=== PATIENT | male | born 1950 | race Caucasian/White ===

== ENCOUNTER 2019-01-23 15:54 | Observation (INO) | payer MEDICARE ==
[2019-01-23 16:26] LABS: #Eosinphils 0.1 thou/uL (0.0-0.7); #Lymphocytes 1.7 thou/uL (1.20-3.40); #Monocytes 0.6 thou/uL (0.11-0.59); #Neutrophils 9.5 thou/uL (1.40-6.50); %Basophils 0.3 % (0.0-1.0); %Lymphocytes 13.9 % (21.0-51.0); %Monocytes 5.1 % (0.0-10.0); %Neutrophils 79.6 % (42.0-75.0); Hemoglobin 14.8 g/dL (14.0-18.0); Mean Corpuscular HGB CONC 33.3 g/dL (32.0-36.0); Mean Corpuscular Hemoglobin 28.9 pg (27.0-31.0); Mean Corpuscular Volume 86.6 fL (78.0-98.0); Platelet Count 347 thou/uL (130-400); RBC Distribution Width 12.7 % (11.5-14.5); Red Blood Cell (RBC) Count 5.12 mill/uL (4.70-6.10)
[2019-01-23] MEDS ORDERED: Ondansetron PF 4 MG/2 ML Vial ONE (16:29)
[2019-01-23] MEDS ORDERED: Aspirin Chewable 81 MG TAB ONE (16:29)
[2019-01-23] MEDS ORDERED: Fentanyl 100 MCG/2 ML VIAL ONE (16:29)
[2019-01-23 16:51] LABS: ALT (SGPT) 22 U/L (8-55); AST (SGOT) 21 U/L (5-34); Albumin 4.5 g/dL (3.4-4.8); Alkaline Phosphatase 41 U/L (40-110); Anion Gap 14 mmol/L (10-20); BUN (Urea Nitrogen) 17 mg/dL (8.4-25.7); Bilirubin, Total 0.4 mg/dL (0.2-1.2); CK (CPK) 253 U/L (30-200); Calc. Creatinine Clearance 0 mL/min (70-130); Calcium 9.6 mg/dL (7.8-10.44); Carbon Dioxide 22 mmol/L (23-31); Chloride 100 mmol/L (98-107); Estimated GFR-MDRD 56; Globulin 3.4 g/dL (2.4-3.5); Glucose 182 mg/dL (80-115); Lipase 22 U/L (8-78); Potassium 4.1 mmol/L (3.5-5.1); Protein, Total 7.9 g/dL (5.8-8.1); Sodium 132 mmol/L (136-145)
[2019-01-23] MEDS ORDERED: Iopamidol-370 76% 500 ML 1 ML ONE (16:54)
[2019-01-23 17:07] LABS: CKMB 3.8 ng/mL (0-6.6)
[2019-01-23] MEDS ORDERED: Acetaminophen 650 MG Suppository PR PRN (17:20)
[2019-01-23] MEDS ORDERED: Sodium Chloride 0.9% 1,000 ML IV SCH (17:30)
[2019-01-23] MEDS ORDERED: Dextrose 5% in Water 1,000 ML IV PRN (17:31)
[2019-01-23] MEDS ORDERED: HumaLOG 300 UNITS/3 ML VIAL SC PRN ×2 (17:31)
[2019-01-23] MEDS ORDERED: Dextrose 50% Abboject 50 ML SYRINGE SLOW IVP PRN (17:31)
[2019-01-23] MEDS ORDERED: cloNIDine 0.1 MG TAB PO PRN (17:36)
[2019-01-23] MEDS ORDERED: hydrALAZINE 20 MG/ML VIAL SLOW IVP PRN (17:37)
--- NOTE | 2019-01-23 17:37 | CT ---
EXAM: CT angiogram chest and abdomen with IV contrast and 3-D reconstructions PROVIDED CLINICAL HISTORY: Back pain in a patient with hypertension. Patient states feels as if he is having a heart attack. COMPARISON: None FINDINGS: The thoracic and abdominal aorta are normal in caliber without evidence of an aortic dissection. Mild scattered atherosclerotic calcifications and plaque are seen in the thoracic and abdominal aorta. Vascular calcifications are seen in the coronary arteries. There is suboptimal opacification of the pulmonary arteries to evaluate for pulmonary embolus. The celiac, superior mesenteric, and inferior mesenteric arteries are patent. There 2 patent right re nal arteries. A single patent left renal artery is present. Vascular calcifications are seen in the visualized proximal common iliac arteries which are otherwise patent. A heterogeneous nodule is seen in the left lobe of the thyroid gland measuring 1.7 cm. Subcentimeter hypodense nodule is seen in the right lobe of thyroid gland There is no evidence of mediastinal lymphadenopathy. Prominent calcified scattered pleural-based plaques are again seen within the lungs bilaterally. Thes e findings are nonspecific but can be seen with prior asbestos exposure. No pulmonary nodule, mass, or pleural effusion is seen in the lungs bilaterally. There is evidence of prior granulomatous disease with calcified bilateral hilar lymph nodes as well a s scattered calcified granulomata within the lungs and calcified granulomata in the liver and spleen. A 9 mm hypodense cystic lesion is seen in the tail of the pancreas. The bilateral adrenal glands and kidneys demonstrate a normal CT appearance. A fat-containing ventral abdominal wall hernia is seen but incompletely imaged on this exam. A small hiatal hernia is seen. Degenerative changes are seen throughout the spine. IMPRESSION: 1. Pancreatic cystic lesion measuring less than 1 cm in the tail of the pancreas. Given the age of th e patient and size of the lesion, ACR white paper guidelines recommend follow-up evaluation in 2 years. Imaging follow-up is recommended with contrast-enhanced MRI versus pancreas protocol CT. 2. Heterogeneous nodule left lobe of the thyroid gland. Nonemergent thyroid ultrasound is recommended . . 3. Mild atherosclerotic vascular calcifications within the abdominal aorta and iliac arteries, but th e thoracic and abdominal aorta are normal in caliber without evidence of an aortic dissection. 4. Calcified pleural-based plaques within the lungs bilaterally which is overall nonspecific. This ca n be seen with prior asbestos exposure. No parenchymal lung changes are identified. 5. Small hiatal hernia. 6. Fat-containing ventral abdominal wall hernia. Reported By: Franc Holcombally Signed: 01/23/2019 5:34 PM
[2019-01-23 19:06] LABS: Bilirubin Negative (Negative); Blood, Urine Negative (Negative); Clarity Clear (Clear); Glucose, Urine (Dipstick) Greater than 1000 mg/dL (Negative); Leukocyte Negative Leu/uL (Negative); Nitrite Negative (Negative); Protein, Urine (Dipstick) 20 mg/dL (Neg-Trace); Urobilinogen Normal mg/dL (Less than 2)
[2019-01-23 20:00] LABS: CKMB 3.1 ng/mL (0-6.6)
[2019-01-23] MEDS ORDERED: Enoxaparin Sodium 100 MG/ML SYRINGE ONE (20:46)
[2019-01-23] MEDS ORDERED: Nitroglycerin 2% Ointment 1 INCH/1 GM Packet ONE (20:46)
[2019-01-23] MEDS ORDERED: Famotidine/PF 20 mg/2ml Vial SLOW IVP SCH (21:00)
[2019-01-23 22:38] LABS: Troponin I 0.047 ng/mL (< 0.028)
[2019-01-23 23:01] VITALS: BMI 38.2
[2019-01-24] MEDS: Acetaminophen 325 MG TAB PO PRN ×2 (00:06→12:39)
[2019-01-24] MEDS ORDERED: Ketorolac Tromethamine 30 MG/ML VIAL IVP PRN (02:34)
[2019-01-24 04:37] LABS: #Basophils 0.1 thou/uL (0.0-0.2); #Eosinphils 0.3 thou/uL (0.0-0.7); #Lymphocytes 2.1 thou/uL (1.20-3.40); #Monocytes 0.6 thou/uL (0.11-0.59); #Neutrophils 7.3 thou/uL (1.40-6.50); %Basophils 0.5 % (0.0-1.0); %Eosinophils 2.5 % (0.0-10.0); %Lymphocytes 20.8 % (21.0-51.0); %Monocytes 5.8 % (0.0-10.0); %Neutrophils 70.5 % (42.0-75.0); Hemoglobin 13.1 g/dL (14.0-18.0); Mean Corpuscular HGB CONC 32.9 g/dL (32.0-36.0); Mean Corpuscular Hemoglobin 28.2 pg (27.0-31.0); Mean Corpuscular Volume 85.7 fL (78.0-98.0); Mean Platelet Volume 7.2 fL (7.4-10.4); Platelet Count 305 thou/uL (130-400); RBC Distribution Width 12.6 % (11.5-14.5); Red Blood Cell (RBC) Count 4.64 mill/uL (4.70-6.10); White Blood Cell (WBC) Count 10.3 thou/uL (4.8-10.8)
[2019-01-24 04:58] LABS: Anion Gap 11 mmol/L (10-20); BUN (Urea Nitrogen) 13 mg/dL (8.4-25.7); Calc. Creatinine Clearance 97 mL/min (70-130); Calcium 8.9 mg/dL (7.8-10.44); Carbon Dioxide 22 mmol/L (23-31); Cardiac Risk 5.1 (Less than 4.5); Chloride 105 mmol/L (98-107); Cholesterol 142 mg/dl (< 200 Desired); Estimated GFR-MDRD 66; Glucose 149 mg/dL (80-115); HDL Cholesterol 28 mg/dL (>60 Neg Risk); LDL Cholesterol, Calculated 73 mg/dL; Sodium 134 mmol/L (136-145); Triglycerides 207 mg/dL (Less than 150)
--- NOTE | 2019-01-24 07:34 | HP ---
PRIMARY CARE PHYSICIAN: [place]. CHIEF COMPLAINT: Left sided back pain. HISTORY OF PRESENT ILLNESS: Mr. Chaparro is a pleasant 68-year-old man with a history of hypertension, hyperlipidemia, diabetes mellitus, and coronary artery disease, who has had an DC x2 in the past with 2 stents placed 4 to 5 years ago. The patient states he developed left sided back pain just below the shoulder blade approximately 2 weeks ago, which he states was mild and barely noticeable. The pain was suddenly worse when he woke up this morning. He was traveling with his and was staying at a local park with plans to return to their home in [place] today. Given the significant worsening in his pain, he opted to come in to undergo evaluation. The patient denies having any recent trauma or falls. Denies having any chest pain, palpitations, or shortness of breath. States the pain was made worse with movement before he came in; however, states that the pain has completely resolved after he was given nitroglycerin on arrival to the emergency department. In the ED, he underwent an EKG that showed normal sinus rhythm with a heart rate of 77. There were no ST changes or T-wave abnormalities. He underwent laboratory studies, which showed white cell count of 12, hemoglobin of 14.8, hematocrit 44.3, platelets 347, neutrophils 79.6. Sodium 132, potassium 4.1, chloride 100, carbon dioxide 22, anion gap 14, BUN 17, creatinine 1.28, GFR 56, glucose 182, calcium 9.6. LFTs unremarkable. Alkaline phosphatase 41. CK 253, CK-MB 3.8. Initial troponin was 0.029. BNP 21.2. Albumin 4.5, lipase 22. He was treated with Lovenox and given 1 inch of Nitro-Bid as well as 324 mg of aspirin. He received fentanyl injection 100 mcg and has been on 1 L of IV fluids as well as Zofran. CT dissection has been ordered and report is pending. PAST MEDICAL HISTORY: 1. Hypertension. 2. Hyperlipidemia. 3. Type 2 diabetes mellitus, on insulin. 4. DC x2. PAST SURGICAL HISTORY: Cardiac stents x2. SOCIAL HISTORY: The patient is fully independent and lives with his . Denies any alcohol consumption or illicit drug use. He does smoke cigars. FAMILY HISTORY: Noncontributory. ALLERGIES: NO KNOWN DRUG ALLERGIES. CURRENT MEDICATIONS: The patient does not have a list of his medications at this present time. PHYSICAL EXAMINATION: GENERAL: The patient appears well developed, well nourished, and is in no acute distress. VITAL SIGNS: Temperature 98, pulse 77, blood pressure 188/86, respirations 19, O2 saturation 98% on room air. HEENT: Normocephalic and atraumatic. Pupils are equal, round, and reactive to light. Sclerae without icterus. Oropharynx is clear. NECK: Supple. LUNGS: Clear to auscultation bilaterally without any wheezes, rales, or rhonchi. CARDIAC: Regular rate and rhythm. ABDOMEN: Obese, soft, nontender, nondistended. Ventral abdominal hernia present, reducible and nontender. EXTREMITIES: No lower leg swelling or edema. No calf tenderness. NEUROLOGIC: Alert and oriented x3. No neuro deficits. MUSCULOSKELETAL: He does not have any reproducible pain on palpation of the thoracolumbar spine nor over the area in which he was experiencing discomfort previously, that being directly below the left scapula. SKIN: Normal, warm and dry. INVESTIGATIONS: As mentioned above in HPI. IMPRESSION AND PLAN: Mr. Chaparro is a 68-year-old gentleman with multiple comorbidities, who has had a myocardial infarction in the past requiring stents x2, who has been referred for the following. 1. Acute coronary syndrome rule out. We will continue to trend troponins. Initial troponin was indeterminate. The patient is currently being taken for a CT dissection. He is without any pain at present. 2. We will tentatively schedule stress test for the morning. Per patient, he sees Dr. Lopez at [facility] in [place] and last had an echo as well as a stress test approximately only 1 year ago. Day Team to decide if Cardiology input needed. 3. Hypertension. BP currently elevated. The patient states his blood pressure is not usually this high and he did take his medications as usual this morning. We will need to verify his home medications. We will reconcile once done. In the meantime, we will cover with p.r.n. antihypertensives. 4. Diabetes mellitus, on insulin. Again, we will need to verify home medications and reconciled. Monitor blood glucose. Initiate insulin sliding scale. 5. Gastrointestinal prophylaxis. Famotidine 20 mg IV b.i.d. 6. Deep venous thrombosis prophylaxis. Mechanical SCDs. 7. Code status full. His surrogate decision maker is Kai Casillas, his , her phone #[phone]. The patient's case was discussed with Dr. Hamilton, who agrees with the plan of care as described above. Job ID: [id number]
[2019-01-24 08:29] LABS: Troponin I 0.041 ng/mL (< 0.028)
[2019-01-24] MEDS ORDERED: Famotidine 20 MG TAB PO SCH (09:00)
--- NOTE | 2019-01-24 10:45 | CON ---
DATE OF CONSULTATION: 01/24/2019 INDICATION FOR CONSULTATION: A 68-year-old gentleman with a history of coronary artery disease, who has undergone angioplasty and stent placed in the past, who presented after having significantly elevated blood pressure and left back pain. He has had stent placements in the past. He says he had myocardial infarctions also. This is about 4 or 5 years ago done I believe in [place] or either in some other facility, but was not done here in [facility]. He lifted some heavy objects about 3 days ago and then noticed yesterday he started developing back pain and he also took his blood pressure, which was significantly elevated. He presented to the emergency room. He says at time he took his blood pressure was over 200/120 or 140. He presented to the emergency room and then EKG showed no significant changes. He did have some indeterminate cardiac enzymes, which certainly could be due to the elevation of the blood pressure, but his cardiac enzymes were still indeterminate, but most likely can represent a type 2 [id number] elevation myocardial infarction due to demand ischemia. Otherwise, at this time, his back still has some discomfort, especially when he moves from one side to the other, but otherwise he denies any chest pain. He has no shortness of breath and has been otherwise stable. He was given some nitroglycerin in the emergency room as well as aspirin and Lovenox and also was given fentanyl and I believe some Zofran and it seems to be much better now. PAST MEDICAL HISTORY: Please refer to the notes dictated by my nurse practitioner, but briefly, past medical history shows a history of hypertension, hyperlipidemia, myocardial infarction, stent placements, diabetes. He is on insulin. FAMILY HISTORY: Noncontributory. SOCIAL HISTORY: He is . He is independent. He has no history of alcohol or tobacco abuse. No illicit drug use. REVIEW OF SYSTEMS: Please refer to the notes already dictated. He has no significant complaints at this time. Overall, review of systems is unremarkable except as noted in the history of present illness. ALLERGIES: NONE. MEDICATIONS: At this time, his home medications include metoprolol 25 mg a day, Lantus insulin 42 units nightly. He also takes FlexPen 12-14 units three times a day, fenofibrate 160 mg a day, lisinopril 5 mg a day, Victoza injection at noon 1.8 units, metformin 1000 mg b.i.d., and atorvastatin 10 mg nightly. PHYSICAL EXAMINATION: GENERAL: Reveals a well-developed, well-nourished gentleman, who is in no acute distress at this time. VITAL SIGNS: Blood pressure is actually 104/55, shortly after midnight was 128/72. When he arrived to the emergency room was 145/77 at least 0900 hours last night when he presented to the floor. He is afebrile. His respiratory rate is 12 to 14. Heart rate is 60s to 80s and shows a sinus rhythm. HEENT: Shows head to be normocephalic and atraumatic. NECK: Carotid pulses are present without any bruits. CHEST: His chest was clear to auscultation without rales, rhonchi, or wheezing. CARDIOVASCULAR: Reveals a regular rate and rhythm with normal S1, S2. I cannot hear an S3 nor an S4. There were no significant murmurs, heaves, thrills, bruits, or rubs. ABDOMEN: Shows morbid obesity. Positive bowel sounds are present. EXTREMITIES: Showed no clubbing, cyanosis, or edema. Pedal pulses are present. NEUROLOGIC: The patient appears to be intact. LABORATORY DATA: Shows a troponin I of 0.037 increased up to 0.047, is now decreased back down to 0.041. His cholesterol level was 142 with an LDL level controlled at 73 and HDL was only 28, triglycerides were 207. Blood sugar was 141 and hemoglobin was 13.1, WBC of 10.3. EKG shows a normal sinus rhythm with no acute changes. No evidence of previous myocardial infarction. No evidence of ischemia. IMPRESSION: 1. A 68-year-old gentleman with a history of coronary artery disease, who presented with back pain and significant hypertension and slight elevation of cardiac enzymes, most likely due to the hypertensive episode. This is all now resolved. The patient is stable without any other further symptoms. As long as the blood pressure remains stable, the patient could be discharged to home. He can follow up with his primary airworthiness inspector. 2. Hypertension. This is under good control at this time. We will continue his present medications. Most likely, the blood pressure spiked due to the pain he was having with his back. 3. Diabetes. This will be dealt with by the primary care service. 4. Dyslipidemia. He is also taking medications. We will continue his present medications. At this time, I believe the patient is stable and could be discharged to home. Job ID: [id number]
[2019-01-24 12:43] VITALS: BP 119/57; TEMP 97.3
--- NOTE | 2019-01-24 15:34 | CON ---
DATE OF CONSULTATION: The patient's primary care doctor is Dr. Lopez in [place], [place]. The patient's primary pilling machine operator is going to be here in the [facility], going to be Dr. Bessie Patiño. The patient's primary care doctor here in the hospital is Darin Barros. REASON FOR CARDIOLOGY CONSULTATION: Left subscapular pain, history of myocardial infarction x2, stent placement, and diabetes. HISTORY OF PRESENT ILLNESS: Mr. Chaparro is a 68-year-old male with a significant history of coronary artery disease with stent placement times twice in 2010 and 2013, in the same place; hypertension; hyperlipidemia; and insulin-dependent diabetes. The patient is from [place]. He is travelling around in the [facility] with his . While he was driving around [facility], he started having the left back pain. Also, when he checked the blood pressure around 2 o'clock yesterday, his systolic blood pressure was more than 180, where his diastolic 140. He took his blood pressure twice, which was similar to the first one. Due to the high blood pressure and the back pain, the patient decided to present to the emergency department for further evaluation and treatment. 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 At that time, he had some discomfort around the area, but he was not concerned because the pain was not that significant. During the episode and during the initial Cardiology consult, the patient denied any chest pain, heaviness, tightness, shortness of breath, dizziness, lightheadedness, numbness in the left upper extremity, or any other cardiac complaints. The patient has a history of stent placement in 2010 and 2013, in the same place. Prior to the procedure, the patient had significant pain in the midsternal area, which radiated to the left upper extremity with numbness. He never had those symptoms this time. He has seen pilling machine operator in [place], Dr. Lopez. Stress test and echo were done last year. The patient was told those results are normal, and his medication has not changed. He has not had any cardiac catheterization since 2013. The patient's troponins level this admission are 0.029, 0.037, and 0.047. PAST MEDICAL HISTORY: Coronary artery disease with stent placement times twice, hypertension, hyperlipidemia, and insulin-dependent diabetes. PAST SURGICAL HISTORY: Stent placement times twice in 2010 and 2013, in the same place; appendectomy; hernia repair; and right shoulder surgery. FAMILY HISTORY: The patient's father due to Hodgkin disease at the age of 48. The patient's mother has Alzheimer's at this moment. They have significant family history of diabetes and myocardial infarction on the maternal side. SOCIAL HISTORY: The patient is . He is living with his , who both enjoying life travelling around . He denied EtOH or illicit drug abuse. However, he smokes at least 2 cigars a day. exercise. He does not have any children. He drinks 4 cups of coffee a day and 2 cans of sprite. ALLERGIES: HE HAS NO KNOWN DRUG ALLERGIES. HOME MEDICATIONS: 1. Metoprolol 25 mg once a day. 2. Insulin Lantus 42 units at night. 3. NovoLog 12 to 14 units subcutaneously 3 times a day. 4. Fenofibrate 160 once a day. 5. Lisinopril 5 mg once a day. 6. Victoza 1.8 units at noon. 7. Metformin 1000 mg twice a day. 8. Atorvastatin 10 mg once a day. 9. He takes aspirin 81 mg once a day, but he does not take Plavix which was discontinued by the patient's primary care pilling machine operator per the patient. REVIEW OF SYSTEMS: A 12-point review of systems was negative unless otherwise mentioned in the HPI. PHYSICAL EXAMINATION: VITAL SIGNS: Blood pressure 104/55, temperature 98.2, pulse is 66, respiratory rate 14, O2 saturation 93% on room air. GENERAL: The patient is alert and oriented x4, not in acute distress. HEENT: Head, normocephalic and atraumatic. Eyes; extraocular muscle movement intact. ENT and mouth, oral and nasal mucosa moist without lesion. NECK: Supple. Normal range of motion. No JVDs. LUNGS: Clear to auscultation bilaterally. No wheezing, rales, or rhonchi noted. CARDIOVASCULAR: Regular rate and rhythm. Normal S1 and S2. There is no S3 or S4. No significant murmur, hives, or thrill noted. 2+ pulses in the bilateral upper and lower extremities. No edema in the lower extremities. Carotid pulses are present without bruit or thrill. ABDOMEN: Soft and nontender. No mass to palpitate. Bowel sounds are present. SKIN: Warm and dry. No lesion, rash, or erythema noticed. MUSCULOSKELETAL: The patient is able to move all extremities without difficulty. The patient denied claudication. NEUROLOGIC: The patient is alert and oriented x4. Nonfocal. PSYCHIATRIC: The patient's mood is appropriate. LABORATORY DATA: WBC 10.3, hemoglobin 13.1, hematocrit 39.7, platelets 305. Sodium 134, potassium 4.0, BUN 13, creatinine 1.11, glucose 149, magnesium 1.9, AST 21, ALT 22. CK-MB 3.1. Troponin 0.029, 0.037, 0.047, 0.041. BNP 21.2. TSH 0.4396. Total cholesterol 142, triglyceride 207, HDL 28, and LDL 73. UA shows glucose in the urine more than 1000. CT dissection shows pancreatic cystic lesion measuring less than 1 cm in the tail of pancreas. The patient had a heterogeneous nodule, left lobe in the thyroid gland, mild atherosclerotic vascular calcification, and small hiatal hernia containing abdominal wall hernia. ASSESSMENT AND PLAN: 1. Indeterminate troponin level. The patient's troponins have been 0.029, 0.037, 0.047, and 0.041, which may come from discomfort or muscle irritation from heavy lifting in the previous day. The patient has not had any cardiac complaints. The patient's 12-lead EKG did not show any ST-segment change or T-wave inversion. The patient had a stress test done last year by the patient's primary pilling machine operator in [place]. We are getting medical record from his office, and also, the patient himself refused to have a stress test or any cardiac workup in this hospital. He stated he is going to call his primary pilling machine operator soon after he was discharged from here. He has been on metoprolol and lisinopril. We would like to resume those medicines. He also is on aspirin 81 mg once a day at home. 2. Hypertensive urgency. The patient's blood pressure has been stable during this admission. He reported his blood pressure has been 120 to 130 at home. We would like to resume his current home medication. 3. Coronary artery disease with history of stent placement times twice. The patient's condition is stable at this moment. He has been on beta-nicol, lisinopril, and aspirin. His antiplatelet medication has been discontinued by the patient's primary pilling machine operator. 4. Insulin-dependent diabetes, which is managed by primary care doctor. 5. Hyperlipidemia. He has been on Lipitor 10 mg once a day and fenofibrate. Thank you very much for allowing the Cardiology Service to participate in the care of this patient. We will follow along the patient's care team and make further recommendation as appropriate, but basically, the patient is refusing all cardiac workup and exam here. There is nothing we can do from cardiac standpoint. So, from cardiac standpoint, after the patient was seen by Dr. Patiño, the patient may able to discharge hopefully today. Job ID: [id number]
--- NOTE | 2019-01-24 19:46 | DIS ---
DATE OF ADMISSION: 01/23/2019 DATE OF DISCHARGE: 01/24/2019 PRIMARY CARE PROVIDER: Unknown. DISCHARGE DIAGNOSIS: Back pain. CONDITION OF PATIENT ON THE DAY OF DISCHARGE: Stable. I assessed Mr. Chaparro on the day of discharge. He denies any back pain. He denies any fevers or chills. Vital signs are stable. S1 and S2 are heard, regular. Lungs are clear to auscultation bilaterally. DISCHARGE MEDICATIONS: No change was made to his pre-admission home medications, which include: 1. Atorvastatin 10 mg at bedtime. 2. Fenofibrate 160 mg daily. 3. NovoLog insulin 14 units three times a day. 4. Lantus insulin 42 units at bedtime. 5. Victoza 1.8 mg subcutaneously daily. 6. Lisinopril 5 mg daily. 7. Metformin 1000 mg 2 times a day. 8. Toprol-XL 25 mg daily. CONSULTATIONS DURING THIS HOSPITALIZATION: Cardiology, Dr. Patiño. HOSPITAL COURSE: Mr. Chaparro is a pleasant 68-year-old gentleman, who was admitted to [facility] on 01/23/2019, for left-sided back pain. Please refer to Ms. Frazier's history and physical note dated 01/23/2019, for further details. He was monitored on telemetry. He was seen by Cardiology Service. He has been cleared for discharge. He is being discharged home in a stable condition. On the day of discharge, he has sodium 134, potassium 4.0, and creatinine 1.11. White count is 10,300, hemoglobin 13.1, and platelet count 305,000. Fasting lipid profile showed triglycerides 207, cholesterol 142, LDL cholesterol 73, HDL cholesterol 28. TSH was normal during this hospitalization. Troponins were in the indeterminate range at 0.037, 0.047, and trending down to 0.041. POST-DISCHARGE FOLLOWUP: The patient is advised to follow up with primary care provider in 3 days' time. ACTIVITY: As tolerated. DIET: Cardiac and diabetic. DISCHARGE DESTINATION: Home. Job ID: [id number]
== END 2019-01-24 13:00 | disposition home or self-care (01) ==
LOC: ERS 15:54 → 2SW 17:37
PROVIDERS: ADMIT Internal Medicine; ATTEND Internal Medicine
DX: M54.9 Dorsalgia, unspecified (principal); I16.0 Hypertensive urgency; I10 Essential (primary) hypertension; E78.5 Hyperlipidemia, unspecified; E11.9 Type 2 diabetes mellitus without complications; I25.730 Atherosclerosis of nonautologous biological coronary artery bypass graft(s) with unstable angina pectoris; I25.2 Old myocardial infarction; F17.290 Nicotine dependence, other tobacco product, uncomplicated; K43.9 Ventral hernia without obstruction or gangrene; I70.0 Atherosclerosis of aorta; E04.1 Nontoxic single thyroid nodule; R79.89 Other specified abnormal findings of blood chemistry; Z79.4 Long term (current) use of insulin; Z79.82 Long term (current) use of aspirin; Z79.899 Other long term (current) drug therapy; Z95.5 Presence of coronary angioplasty implant and graft
CPT/HCPCS: 71275; 72191; 74175; 80048; 80061; 81003; 82550; 82553; 82962 ×2; 83605; 83690; 83735; 83880; 84145; 84484 ×3; 85025; 93005; 96361 ×2; 96372; 96374; 96375 ×2; 97139; 99285; G0378 ×3; 36415; 36416; 80053; 84443; J1650; J1885; J2405; J3010; Q9967